=== PATIENT | male | born 1965 | race Native Hawaiian/Other Pacific Islander ===

== ENCOUNTER 2019-09-01 14:05 | Emergency (ER) | payer OTHER ==
[~2019-09-01] VITALS: Ht 165.1 cm; Wt 62.6 kg
[2019-09-01 14:05] VITALS: BP 153/82; TEMP 100
[2019-09-01 14:21] LABS: PLATELET COUNT 315 K/uL (142-355); POTASSIUM 3.9 mmol/L (3.6-5.2)
[2019-09-01] MEDS ORDERED: [UNRECOGNIZED DRUG - SUPPLY] XX ×2 (17:29)
[2019-09-01] MEDS ORDERED: [UNRECOGNIZED DRUG - SUPPLY] PEG ×4 (17:34→17:36)
[2019-09-01] MEDS ORDERED: ALBUTEROL4 M1 PEG ×2 (17:41)
[2019-09-01] MEDS ORDERED: ASPIRIN REGULA325 MG PEG ×2 (17:42)
[2019-09-01] MEDS ORDERED: CLON0.5T36 PEG (17:44)
[2019-09-01] MEDS ORDERED: MUPI2OIN2 TOP ×2 (17:44)
[2019-09-01] MEDS ORDERED: HYDR-3182 PEG ×2 (17:45)
[2019-09-01] MEDS ORDERED: MEDR10TA4 PEG ×2 (17:46)
[2019-09-01] MEDS ORDERED: MONTELUKAST SOD10 MG PEG ×2 (17:48)
[2019-09-01] MEDS ORDERED: PAXIL20 MG PEG (17:49)
[2019-09-01] MEDS ORDERED: PHENOBARB32.4 MG PEG ×2 (17:50)
[2019-09-01] MEDS ORDERED: POTASSIUM CHLORIDE PEG ×2 (18:02)
[2019-09-01] MEDS ORDERED: TIZANIDINE HYDRO2 M1 PEG ×2 (18:03)
[2019-09-03] MEDS ORDERED: FLUOXETINE20 MG PO ×2 (14:40)
[2019-09-03] MEDS ORDERED: RISP0.25 PO ×2 (14:40)
[2019-09-03] MEDS ORDERED: DIPH50IN IM ×2 (15:05)
[2019-09-03] MEDS ORDERED: HALO5INJ3 IM ×2 (15:05)
[2019-09-03] MEDS ORDERED: LORA2INJ21 IM ×2 (15:05)
[2019-09-03] MEDS ORDERED: OLAN10INJ IM ×2 (15:05)
[2019-09-09] MEDS ORDERED: HALO5INJ3 IM (10:58)
[2019-09-09] MEDS ORDERED: HYDR-3182 PO (10:58)
[2019-09-09] MEDS ORDERED: LORA2INJ21 IM ×2 (10:58→10:59)
[2019-09-09] MEDS ORDERED: FLUOXETINE20 MG PO (10:58)
[2019-09-09] MEDS ORDERED: MEDR2.5T19 PO (10:59)
[2019-09-09] MEDS ORDERED: PHEN30TA PO (10:59)
[2019-09-09] MEDS ORDERED: OLAN10INJ IM (10:59)
[2019-09-09] MEDS ORDERED: LORA1TAB17 PO (10:59)
[2019-09-09] MEDS ORDERED: RISP0.25 PO (10:59)
== END 2019-09-01 16:18 | disposition other institution (70) ==
LOC: ED 14:05
PROVIDERS: Family Medicine
DX: R46.89 Other symptoms and signs involving appearance and behavior (principal); F32.89 Other specified depressive episodes; Z04.6 Encounter for general psychiatric examination, requested by authority
CPT/HCPCS: 80053; 85027; 87070; 87205; 93005; 99285

== ENCOUNTER 2019-09-03 13:17 | Inpatient (IN) | payer OTHER ==
[~2019-09-03] VITALS: Ht 175.3 cm; Wt 69.9 kg
[2019-09-03] VITALS (8 sets, daily range): BP systolic 122–152; BP diastolic 69–95; TEMP 98–98.6; Ht 175.3 cm; Wt 69.9 kg
[~2019-09-03 13:17] MED LIST: ALBUTEROL4 M1 PEG; ASPIRIN REGULA325 MG PEG; CLON0.5T36 PEG; HYDR-3182 PEG; MEDR10TA4 PEG; MONTELUKAST SOD10 MG PEG; MUPI2OIN2 TOP; PAXIL20 MG PEG; PHENOBARB32.4 MG PEG; POTASSIUM CHLORIDE PEG; TIZANIDINE HYDRO2 M1 PEG; [UNRECOGNIZED DRUG - SUPPLY] PEG; [UNRECOGNIZED DRUG - SUPPLY] XX
[2019-09-03] MEDS ORDERED: RISP0.25 PO (14:40)
[2019-09-03] MEDS ORDERED: FLUOXETINE20 MG PO (14:40)
[2019-09-03] MEDS ORDERED: LORA2INJ21 IM (15:05)
[2019-09-03] MEDS ORDERED: DIPH50IN IM (15:05)
[2019-09-03] MEDS ORDERED: OLAN10INJ IM (15:05)
[2019-09-03] MEDS ORDERED: HALO5INJ3 IM (15:05)
[2019-09-04 04:04] VITALS: BP 132/86; TEMP 98.6
[2019-09-04 05:26] LABS: POTASSIUM 3.9 mmol/L (3.6-5.2)
[2019-09-04 08:00] VITALS: BP 109/64; TEMP 97.4
[2019-09-05 14:16] LABS: PLATELET COUNT 350 K/uL (142-355)
[2019-09-05 20:01] VITALS: BP 122/81; TEMP 99.4
[2019-09-05 23:59] VITALS: BP 138/79; TEMP 98.9
[2019-09-06 03:57] VITALS: BP 133/84; TEMP 98.7
[2019-09-06 09:03] LABS: PLATELET COUNT 302 K/uL (142-355)
[2019-09-06 09:17] LABS: POTASSIUM 3.9 mmol/L (3.6-5.2)
[2019-09-07] VITALS: BP 141/90; TEMP 100.6
[2019-09-07 03:59] VITALS: BP 130/84; TEMP 98.3
[2019-09-07 05:46] LABS: PLATELET COUNT 292 K/uL (142-355)
[2019-09-07 06:02] LABS: POTASSIUM 3.3 mmol/L (3.6-5.2)
[2019-09-07 08:09] VITALS: BP 137/86; TEMP 98.9
[2019-09-07 12:38] VITALS: BP 131/81; TEMP 99.3
[2019-09-07 16:14] VITALS: BP 122/81; TEMP 97.2
[2019-09-07] MEDS ORDERED: [UNRECOGNIZED DRUG - SUPPLY] XX (21:36)
[2019-09-07] MEDS ORDERED: MUPI2OIN2 TOP (21:40)
[2019-09-09] MEDS ORDERED: HYDR-3182 PO (10:58)
[2019-09-09] MEDS ORDERED: FLUOXETINE20 MG PO (10:58)
[2019-09-09] MEDS ORDERED: LORA2INJ21 IM ×2 (10:58→10:59)
[2019-09-09] MEDS ORDERED: HALO5INJ3 IM (10:58)
[2019-09-09] MEDS ORDERED: LORA1TAB17 PO (10:59)
[2019-09-09] MEDS ORDERED: PHEN30TA PO (10:59)
[2019-09-09] MEDS ORDERED: OLAN10INJ IM (10:59)
[2019-09-09] MEDS ORDERED: MEDR2.5T19 PO (10:59)
[2019-09-09] MEDS ORDERED: RISP0.25 PO (10:59)
== END 2019-09-07 20:32 | DRG 394 ==
LOC: PCU 13:17 → MED/SURG 16:51
PROVIDERS: Family Medicine; Hospitalist; ADMIT Internal Medicine
PROC: 02HV33Z Insertion of Infusion Device into Superior Vena Cava, Percutaneous Approach (ICD-10-PCS; 2019-09-03)
PROC: 0DH63UZ Insertion of Feeding Device into Stomach, Percutaneous Approach (ICD-10-PCS; principal; 2019-09-07)
DX: K94.23 Gastrostomy malfunction (principal); F32.3 Major depressive disorder, single episode, severe with psychotic features; G40.802 Other epilepsy, not intractable, without status epilepticus; Y83.3 Surgical operation with formation of external stoma as the cause of abnormal reaction of the patient, or of later complication, without mention of misadventure at the time of the procedure; Y92.238 Other place in hospital as the place of occurrence of the external cause; R13.19 Other dysphagia; K21.9 Gastro-esophageal reflux disease without esophagitis; F71 Moderate intellectual disabilities; F52.8 Other sexual dysfunction not due to a substance or known physiological condition; R62.7 Adult failure to thrive; K20.8 Other esophagitis
CPT/HCPCS: 36415; 36571; 80048; 80053; 81000; 83735; 84100; 84478; 85027; 87070; 87077; 87205; 93005; 94760; C1751; J0696; J1200; J1630; J2001; J2060; J2250; J2405; J2704; J3490

== ENCOUNTER 2019-09-09 11:10 | Inpatient (IN) | payer OTHER ==
[~2019-09-09] VITALS: Ht 175.3 cm; Wt 110.7 kg
[~2019-09-09 11:10] MED LIST changes: +DIPH50IN IM; +FLUOXETINE20 MG PO; +HALO5INJ3 IM; +HYDR-3182 PO; +LORA1TAB17 PO; +LORA2INJ21 IM; +MEDR2.5T19 PO; +OLAN10INJ IM; +PHEN30TA PO; +RISP0.25 PO
[2019-09-09 12:00] VITALS: BP 118/77; TEMP 97.7
[2019-09-09 12:55] LABS: PLATELET COUNT 316 K/uL (142-355)
[2019-09-09 13:03] LABS: POTASSIUM 3.2 mmol/L (3.6-5.2)
[2019-09-09 13:59] VITALS: BP 118/77; TEMP 97.7; Ht 175.3 cm; Wt 110.7 kg
[2019-09-09 16:00] VITALS: BP 124/80; TEMP 97.9
[2019-09-09 16:16] VITALS: BP 124/80; TEMP 97.7
[2019-09-09 20:01] VITALS: BP 107/63; TEMP 97.2
[2019-09-10] VITALS: BP 124/64; TEMP 98
[2019-09-10 04:00] VITALS: BP 145/80; TEMP 98.3
[2019-09-10 08:09] VITALS: BP 1274/69; TEMP 98.2
[2019-09-10 16:12] VITALS: BP 123/66; TEMP 97.6
[2019-09-10 20:00] VITALS: BP 131/80; TEMP 97.3
[2019-09-10 23:58] VITALS: BP 136/75; TEMP 97.7
[2019-09-11 08:00] VITALS: BP 133/75; TEMP 98.2
[2019-09-11 12:00] VITALS: BP 137/88; TEMP 97.8
[2019-09-11 16:00] VITALS: BP 142/92; TEMP 97.2
== END 2019-09-11 17:50 | DRG 394 ==
LOC: MED/SURG 11:10
PROVIDERS: ADMIT Internal Medicine
DX: K94.23 Gastrostomy malfunction (principal); F32.3 Major depressive disorder, single episode, severe with psychotic features; G40.802 Other epilepsy, not intractable, without status epilepticus; Y83.3 Surgical operation with formation of external stoma as the cause of abnormal reaction of the patient, or of later complication, without mention of misadventure at the time of the procedure; Y92.238 Other place in hospital as the place of occurrence of the external cause; R13.19 Other dysphagia; K21.9 Gastro-esophageal reflux disease without esophagitis; F71 Moderate intellectual disabilities; F52.8 Other sexual dysfunction not due to a substance or known physiological condition; R62.7 Adult failure to thrive; K20.8 Other esophagitis
CPT/HCPCS: 80053; 83735; 85027; J1200; J1630; J2060; J3490